=== PATIENT | female | born 1960 | race Caucasian/White ===

== ENCOUNTER → 2018-05-22 | Outpatient (CLI) | payer OTHER ==
[2018-05-22 07:32] LABS: ALBUMIN 4.3 g/dL (3.5-5.0); CALCIUM 9.2 mg/dL (8.4-10.2); POTASSIUM 3.8 mmol/L (3.6-5.0); TOTAL BILIRUBIN 0.6 mg/dL (0.2-1.3)
== END ==
LOC: LAB 07:03
PROVIDERS: Family Medicine
DX: Z13.1 Encounter for screening for diabetes mellitus (principal); Z13.6 Encounter for screening for cardiovascular disorders

== ENCOUNTER → 2018-07-31 | Outpatient (CLI) | payer OTHER | LOC: MAMMO 07-03 08:30 | DX: Z12.31 Encounter for screening mammogram for malignant neoplasm of breast (principal) ==

== ENCOUNTER 2021-02-02 11:30 | Emergency (ER) | payer BC ==
[2021-02-02] MEDS ORDERED: ESCITALOPRAM10 MG PO (11:50)
[2021-02-02 12:32] LABS: ALBUMIN 4.4 g/dL (3.5-5.0); POTASSIUM 3.9 mmol/L (3.5-5.1)
[2021-02-02 12:34] LABS: CALCIUM 9.3 mg/dL (8.3-10.5)
[2021-02-02 12:35] LABS: TOTAL PROTEIN 6.9 g/dL (6.4-8.3)
[2021-02-02 12:36] LABS: PARTIAL THROMBOPLASTIN TIME 24.5 SECONDS (21.0-32.0); PROTHROMBIN TIME 10.4 SECONDS (9.0-12.0)
[2021-02-02 12:37] LABS: TOTAL BILIRUBIN 0.7 mg/dL (0.2-1.2)
[2021-02-02 12:46] LABS: BASO # 0.01 (0.02-0.10); EOS # 0.18 (0.04-0.40); EOS % 3.1 % (1.0-5.0); HEMATOCRIT 41.4 % (37.0-47.0); HEMOGLOBIN 14.4 g/dL (12.5-16.0); LYMPH# 1.63 (1.50-4.00); MEAN CELL VOLUME 89 fl (78-100); MEAN CORPUSCULAR HEMOGLOBIN 31 pg (27-31); MEAN CORPUSCULAR HGB CONC 35 g/dL (33-37); MEAN PLATELET VOLUME 9.7 fl (7.4-10.4); MONO # 0.45 (0.20-0.80); NEU # 3.59 (1.40-6.50); PLATELET COUNT 183 K/mm3 (130-400); RED BLOOD COUNT 4.64 M/mm3 (4.10-5.30); RED CELL DISTRIBUTION WIDTH 11.9 % (11.5-14.5); WHITE BLOOD COUNT 5.9 K/mm3 (4.8-10.8)
[2021-02-02 13:03] VITALS: BP 149/80
== END 2021-02-02 12:55 | disposition short-term general hospital (02) ==
LOC: ED 11:30
PROVIDERS: Physician Assistant
DX: S72.001A Fracture of unspecified part of neck of right femur, initial encounter for closed fracture (principal); F41.9 Anxiety disorder, unspecified; Z20.822 Contact with and (suspected) exposure to COVID-19; Z79.899 Other long term (current) drug therapy; W18.30XA Fall on same level, unspecified, initial encounter; Y92.009 Unspecified place in unspecified non-institutional (private) residence as the place of occurrence of the external cause
CPT/HCPCS: J2270; J2405

== ENCOUNTER → 2021-02-02 | Outpatient (CLI) | payer BC ==
[~2021-02-02] MED LIST: ESCITALOPRAM10 MG PO
== END ==
LOC: RAD 10:07
DX: S72.011A Unspecified intracapsular fracture of right femur, initial encounter for closed fracture (principal)

== ENCOUNTER → 2021-02-09 | Outpatient (CLI) | payer BC ==
[2021-02-02 13:03] VITALS: BP 149/80
== END ==
LOC: RAD 09:30
DX: Z47.89 Encounter for other orthopedic aftercare (principal)

== ENCOUNTER 2021-02-10 13:56 | Outpatient (RCR) | payer BC | END 2021-05-11 | disposition still patient (30) | LOC: PT | DX: S72.009A Fracture of unspecified part of neck of unspecified femur, initial encounter for closed fracture (principal); Z98.890 Other specified postprocedural states ==

== ENCOUNTER → 2021-03-09 | Outpatient (CLI) | payer BC | LOC: MAMMO 08:43 | DX: Z13.820 Encounter for screening for osteoporosis (principal); S72.001D Fracture of unspecified part of neck of right femur, subsequent encounter for closed fracture with routine healing ==

== ENCOUNTER → 2024-07-23 | Outpatient (CLI) | payer OTHER ==
[2024-07-23 08:52] LABS: HEMATOCRIT 42.5 % (37.0-47.0); HEMOGLOBIN 14.4 g/dL (12.5-16.0); MEAN PLATELET VOLUME 9.6 fl (7.4-10.4); RED BLOOD COUNT 4.62 M/mm3 (4.10-5.30); RED CELL DISTRIBUTION WIDTH 11.7 % (11.5-14.5); WHITE BLOOD COUNT 4.2 K/mm3 (4.8-10.8)
[2024-07-23 08:57] LABS: ALBUMIN 4.4 g/dL (3.4-4.8)
[2024-07-23 08:58] LABS: CALCIUM 9.2 mg/dL (8.3-10.5)
[2024-07-23 09:00] LABS: TOTAL PROTEIN 6.7 g/dL (6.2-8.1)
[2024-07-23 09:02] LABS: TOTAL BILIRUBIN 0.5 mg/dL (0.2-1.2)
== END ==
LOC: LAB 08:39
PROVIDERS: Family Medicine
DX: Z13.220 Encounter for screening for lipoid disorders (principal); I10 Essential (primary) hypertension